=== PATIENT | male | born 1940 | race Caucasian/White ===

== ENCOUNTER 2018-04-18 15:57 | Emergency (ER) | payer OTHER ==
[~2018-04-18] VITALS: Ht 182.9 cm; Wt 90.7 kg
--- NOTE | ~2018-04-18 | EKG ---
[place] [address] [place] [address] ELECTROCARDIOGRAM REPORT Name: SUDEEP KUMARI Room #: [facility]#: [id number] Admission: 04/18/18 Attend Phys: Discharge: 04/18/18 Date of : 42 Report #: [id number] THIS REPORT FOR: //name// [facility] ED Test Date: 2018-04-18 Test Time: 16:34:17 Pat Name: SUDEEP KUMARI Department: Room: Gender: Lift Truck Mechanic: : 1940 Requested By: Erika Saunders Order Number: [id number] MD: Meir Bush Measurements Intervals [place] Rate: 90 P: 61 [place]: 178 QRS: -47 QRSD: 145 T: 50 QT: 401 QTc: 491 Interpretive Statements Sinus rhythm Left atrial enlargement RBBB and LAFB Baseline wander in lead(s) V3 Atrial abnormality now present Left anterior fascicular block now present Right bundle-branch block now present Incomplete right bundle-branch block no longer present Inferior Q waves no longer present Q waves no longer present Electronically Signed On 04-19-2018 10:47:16 CDT by Meir Bush [email or web address] <ELECTRONICALLY SIGNED> By: Meir Bush MD 04/19/18 1047 1634 1634 Meir Bush MD /EPI
[2018-04-18] MEDS ORDERED: DOXYCYCLINE 10100 MG PO (17:11)
[2018-04-18] MEDS ORDERED: PROVENTIL HFA6.7 G1 INH (17:11)
[2018-04-18 17:30] VITALS: BP 156/71
[2018-04-18] MEDS ORDERED: SIMVASTATIN80 MG PO (18:08)
[2018-04-18] MEDS ORDERED: PAROXETINE HCL20 MG PO (18:08)
[2018-04-18] MEDS ORDERED: CARDIZEM CD240 MG PO (18:09)
[2018-04-18] MEDS ORDERED: TRAZODONE HCL100 MG PO (18:09)
[2018-04-18] MEDS ORDERED: FLOMAX0.4 MG PO (18:10)
[2018-04-18] MEDS ORDERED: ASPIR 8181 MG PO (18:10)
[2018-04-18] MEDS ORDERED: SYNTHROID100 MC1 PO (18:11)
== END 2018-04-18 17:30 | disposition home or self-care (01) ==
LOC: ER 15:57
DX: J18.9 Pneumonia, unspecified organism (principal); J91.8 Pleural effusion in other conditions classified elsewhere; J44.9 Chronic obstructive pulmonary disease, unspecified; I25.10 Atherosclerotic heart disease of native coronary artery without angina pectoris; I10 Essential (primary) hypertension; E78.5 Hyperlipidemia, unspecified; I48.91 Unspecified atrial fibrillation; K21.9 Gastro-esophageal reflux disease without esophagitis; F41.9 Anxiety disorder, unspecified; E78.00 Pure hypercholesterolemia, unspecified; I73.00 Raynaud's syndrome without gangrene; Z85.118 Personal history of other malignant neoplasm of bronchus and lung; Z87.891 Personal history of nicotine dependence

== ENCOUNTER → 2019-11-17 | Outpatient (CLI) | payer OTHER ==
[~2019-11-17] MED LIST: ASPIR 8181 MG PO; CARDIZEM CD240 MG PO; DOXYCYCLINE 10100 MG PO; FLOMAX0.4 MG PO; PAROXETINE HCL20 MG PO; PROVENTIL HFA6.7 G1 INH; SIMVASTATIN80 MG PO; SYNTHROID100 MC1 PO; TRAZODONE HCL100 MG PO
== END ==
LOC: SJCVC 14:22
DX: I45.2 Bifascicular block (principal); R94.31 Abnormal electrocardiogram [ECG] [EKG]; I25.10 Atherosclerotic heart disease of native coronary artery without angina pectoris; C34.90 Malignant neoplasm of unspecified part of unspecified bronchus or lung; J44.9 Chronic obstructive pulmonary disease, unspecified; I10 Essential (primary) hypertension; Z95.1 Presence of aortocoronary bypass graft; Z79.899 Other long term (current) drug therapy; Z87.891 Personal history of nicotine dependence

== ENCOUNTER → 2019-11-19 | Outpatient (CLI) | payer OTHER | LOC: SJCVCIMAG 10:04 | DX: I25.10 Atherosclerotic heart disease of native coronary artery without angina pectoris (principal); E78.5 Hyperlipidemia, unspecified; I10 Essential (primary) hypertension; J44.9 Chronic obstructive pulmonary disease, unspecified; Z87.891 Personal history of nicotine dependence; Z79.899 Other long term (current) drug therapy ==

== ENCOUNTER → 2019-11-30 | Outpatient (CLI) | payer OTHER | LOC: SJCVCIMAG 10:56 | DX: I35.8 Other nonrheumatic aortic valve disorders (principal); I25.10 Atherosclerotic heart disease of native coronary artery without angina pectoris; J44.9 Chronic obstructive pulmonary disease, unspecified; I10 Essential (primary) hypertension; E78.5 Hyperlipidemia, unspecified ==

== ENCOUNTER → 2019-12-14 | Outpatient (CLI) | payer OTHER | LOC: RAD 13:01 | DX: J98.4 Other disorders of lung (principal); J84.10 Pulmonary fibrosis, unspecified ==

== ENCOUNTER → 2021-05-18 | Outpatient (CLI) | payer OTHER ==
[~2021-05-18] VITALS: Ht 182.9 cm; Wt 99.8 kg
[~2021-05-18] MED LIST changes: +ASPIRIN EC81 M1 PO; +COZAAR 50 MG TA50 M2 PO; +DILTIAZEM 24HR240 M1 PO; +STIOLTO RESPIMAT4 GM INH; +XOPENEX HFA15 GM INH
--- NOTE | ~2021-05-18 | P ---
[facility] [place] [address] PROCEDURE REPORT Name: SUDEEP KUMARI [id number] Admission: 05/18/21 Attend Phys: José Miguel Pollard Discharge: Date of : 42 Report #: [id number] THIS REPORT FOR: cc: Kelvin De Dios MD,José Miguel Rai MD, MD ~ cc: Kelvin De Dios MD DATE OF SERVICE: 05/18/2021 PROCEDURE PERFORMED: Upper endoscopy with dilation of the esophagus. 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 He underwent dilation by my partner in the past, which was helpful, the last one being in 2015. He does take PPI therapy for reflux, which controls his symptoms fairly well. DESCRIPTION OF PROCEDURE: The risks and benefits of the procedure were explained to the patient, those risks including but not limited to bleeding, perforation and the risk of sedation. He understood these risks and gave informed consent. Sedation was given using propofol per anesthesia. Next, using a standard Olympus upper endoscope, the scope was placed in the patient's mouth and advanced under direct vision into the upper to mid esophagus, at which point, the scope would not pass through a stricture. I proceeded with balloon dilation. A 10 mm, held in place for 1 minute. There was a small mucosal tear. After dilation, I advanced the scope further into the distal esophagus, also very tight in the distal esophagus. This was also balloon dilated to 10 mm and held in place for a minute. No tear in the distal esophagus. The scope did pass after balloon dilations were performed. Upon entering the stomach, a small hiatal hernia was noted. Overall, the gastric mucosa was normal. The pylorus was normal and patent. The duodenal bulb, first and second portion were all normal. The scope was then brought back up into the patient's esophagus. There were several small mucosal tears after the tube balloon dilations. Therefore, I did not proceed with any further dilations at this time. The scope was then withdrawn and the procedure terminated. The patient tolerated the procedure well. IMPRESSION: 1. Esophageal stenosis involving most of the mid and distal esophagus, status post balloon dilation. 2. Small hiatal hernia. 3. Otherwise, normal upper endoscopy. RECOMMENDATIONS: 1. Observe the patient post-procedure. [address] [address] PROCEDURE REPORT Name: SUDEEP KUMARI Room #: REG [facility]#: [id number] Admission: 05/18/21 Attend Phys: José Miguel Pollard Discharge: Date of : 42 Report #: [id number] 2. Repeat on a p.r.n. basis. Thank you for allowing me to participate in his care. By: 1103 2218 José Miguel Dee MD /elle
== END | disposition home or self-care (01) ==
LOC: GI 09:39
PROVIDERS: ATTEND Specialist
DX: K22.2 Esophageal obstruction (principal); K44.9 Diaphragmatic hernia without obstruction or gangrene; I10 Essential (primary) hypertension; I25.10 Atherosclerotic heart disease of native coronary artery without angina pectoris; I48.91 Unspecified atrial fibrillation; F41.9 Anxiety disorder, unspecified; N40.0 Benign prostatic hyperplasia without lower urinary tract symptoms; J43.9 Emphysema, unspecified; E03.9 Hypothyroidism, unspecified; E78.5 Hyperlipidemia, unspecified; Z98.890 Other specified postprocedural states; Z79.899 Other long term (current) drug therapy; Z87.891 Personal history of nicotine dependence; Z79.01 Long term (current) use of anticoagulants; Z85.118 Personal history of other malignant neoplasm of bronchus and lung; Z95.1 Presence of aortocoronary bypass graft; Z20.822 Contact with and (suspected) exposure to COVID-19; Z87.01 Personal history of pneumonia (recurrent)
CPT/HCPCS: 62110; 62900